=== PATIENT | male | born 1970 | race American Indian/Alaskan Native ===

== ENCOUNTER 2021-07-23 06:10 | Emergency (ER) | payer SELFPAY ==
[2021-07-23 06:26] VITALS: BP 147/86
[2021-07-23] MEDS ORDERED: ASPIRIN 325 MG TAB PO ONE (06:31)
--- NOTE | 2021-07-24 10:00 | Electrocardiograph Report ---
[facility] Test Date: 2021-07-23 Test Time: 06:20:23 Pat Name: MONICO LUTZ Department: Room: Gender: M Lactation Consultant: LATHA : 1970 Requested By: ED DOC Order Number: [id number] Reading MD: Aston Hernandes Measurements Intervals United Rate: 69 P: 74 NC: 151 QRS: 65 QRSD: 68 T: 44 QT: 389 QTc: 418 Interpretive Statements Sinus rhythm No previous ECG available for comparison Electronically Signed On 07-24-2021 10:00:18 EDT by Aston Hernandes
== END 2021-07-23 08:49 | disposition left against medical advice (07) ==
LOC: ED 06:10
DX: R20.2 Paresthesia of skin (principal); Z53.21 Procedure and treatment not carried out due to patient leaving prior to being seen by health care provider
CPT/HCPCS: 93005